=== PATIENT | female | born 1990 | race Caucasian/White ===

== ENCOUNTER 2016-09-09 18:02 | Outpatient (CLI) | payer OTHER | END 2016-09-09 23:20 | disposition home or self-care (01) | LOC: GENOP 18:02 | DX: O99.89 Other specified diseases and conditions complicating pregnancy, childbirth and the puerperium (principal); Z3A.36 36 weeks gestation of pregnancy | CPT/HCPCS: 81001; G0463 ==

== ENCOUNTER 2016-09-16 10:38 | Inpatient (IN) | payer OTHER ==
[~2016-09-16] VITALS: Ht 165.1 cm; Wt 91.6 kg
[2016-09-16 11:14] LABS: HEMOGLOBIN 9.2 gm/dl (12.3-15.3); RED BLOOD COUNT 3.9 M/UL (4.00-5.10); WHITE BLOOD COUNT 9.8 K/UL (4.5-11.0)
[2016-09-16 11:31] LABS: BUN/CREATININE RATIO 8 (0-10)
[2016-09-18 02:48] LABS: HEMOGLOBIN 8.3 gm/dl (12.3-15.3)
== END 2016-09-18 16:22 | disposition home or self-care (01) | DRG 775 ==
LOC: GENOP 10:38 → OB 10:55
PROVIDERS: Obstetrics & Gynecology; ADMIT Obstetrics & Gynecology
PROC: 10E0XZZ Delivery of Products of Conception, External Approach (ICD-10-PCS; principal; 2016-09-17)
PROC: 10907ZC Drainage of Amniotic Fluid, Therapeutic from Products of Conception, Via Natural or Artificial Opening (ICD-10-PCS; 2016-09-17)
PROC: 0HQ9XZZ Repair Perineum Skin, External Approach (ICD-10-PCS; 2016-09-17)
DX: O14.94 Unspecified pre-eclampsia, complicating childbirth (principal); Z3A.36 36 weeks gestation of pregnancy; Z37.0 Single live birth; O70.0 First degree perineal laceration during delivery
CPT/HCPCS: 36415; 51702; 80053; 81001; 82800; 82962; 83615; 84550; 85014; 85018; 85025; 85461; 86900; 86901; G0463; J2300; J2405; J2590; J2795; J7120